=== PATIENT | male | born 1945 | race Caucasian/White ===

== ENCOUNTER 2022-01-29 16:13 | Emergency (ER) | payer MEDICARE, MEDICAID ==
[~2022-01-29] VITALS: Ht 182.9 cm; Wt 78.0 kg
[~2022-01-29 16:13] MED LIST: AMLO5TAB88 PO; ASPI-1497 PO; ATOR20TA65 PO; CHOL1CRY2 MC; KETO15CR2 TP; LEVO88TA7 PO; MELA2.5T PO; OLAN2.5T29 MT; OLAN5TAB74 PO; TAMS-11 PO; TOPUD PO; TRIA15CR61 TP; VALP250S4 PO
[2022-01-29 16:49] VITALS: BP 132/78
[2022-01-29 17:42] LABS: BASOPHILS % 0.3 % (0.0-2.0); EOSINOPHILS % 2.8 % (0.0-5.0); HEMATOCRIT. 42.2 % (42.0-52.0); HEMOGLOBIN. 14.4 g/dL (14.0-18.0); LYMPHOCYTES % 38.3 % (20.0-50.0); MEAN CORPUSCULAR HEMOGLOBIN 30.8 pg (28.0-32.0); MEAN CORPUSCULAR VOLUME 90.5 fL (80.0-94.0); MEAN PLATELET VOLUME 8.8 fl (7.4-10.4); NEUTROPHILS % 48.6 % (40.0-76.0); PLATELET 202 x1000/uL (130-400); RED BLOOD CELL COUNT 4.66 mill/uL (4.7-6.1); RED CELL DISTRIBUTION WIDTH 13.9 % (11.6-14.6)
[2022-01-29 17:47] LABS: CHLORIDE 106 mEq/L (98-107)
== END 2022-01-29 18:22 ==
LOC: ER 16:13 → CANBEDREQ 19:26
DX: Z04.89 Encounter for examination and observation for other specified reasons (principal); F03.90 Unspecified dementia, unspecified severity, without behavioral disturbance, psychotic disturbance, mood disturbance, and anxiety; I10 Essential (primary) hypertension; F41.9 Anxiety disorder, unspecified; D64.9 Anemia, unspecified; R94.8 Abnormal results of function studies of other organs and systems; Z86.73 Personal history of transient ischemic attack (TIA), and cerebral infarction without residual deficits; Z79.82 Long term (current) use of aspirin; Z88.0 Allergy status to penicillin
CPT/HCPCS: 36415; 80053; 82140; 85025; 86850; 86900; 93005; 99284

== ENCOUNTER 2024-02-06 15:29 | Emergency (ER) | payer MEDICARE, MEDICAID ==
[~2024-02-06] VITALS: Ht 182.9 cm; Wt 86.0 kg
[~2024-02-06 15:29] MED LIST changes: -MELA2.5T PO; +MELA2.5T16 PO
[2024-02-06 15:36] VITALS: TEMP 97.7; O2SAT 97
[2024-02-06 21:37] VITALS: BP 119/66; PULSE 64; RESP 14
== END 2024-02-06 21:37 | disposition home or self-care (01) ==
LOC: ER 15:29
DX: R53.1 Weakness (principal); M21.372 Foot drop, left foot; I25.2 Old myocardial infarction; I10 Essential (primary) hypertension; Z88.0 Allergy status to penicillin; Z91.048 Other nonmedicinal substance allergy status; Z88.1 Allergy status to other antibiotic agents; Z79.899 Other long term (current) drug therapy; Z79.82 Long term (current) use of aspirin; Z86.73 Personal history of transient ischemic attack (TIA), and cerebral infarction without residual deficits; Z98.890 Other specified postprocedural states
CPT/HCPCS: 72220; 73610; 99285